=== PATIENT | female | born 1960 | race Caucasian/White ===

== ENCOUNTER 2023-02-26 08:54 | Day surgery (SDC) | payer OTHER, SELFPAY ==
--- NOTE | 2023-02-26 | PATH_ITS ---
[facility] Accession Number: [id number] No. of containers..01 Tissue . 01 Material submitted: . cecum - CECUM POLYP . 01 Diagnosis: Cecal Polyp: Vegetable material. No colonic tissue identified. Additional step sections examined. [facility] 03/02/2023 1608 Local . 01 Electronically signed: . Preet Corrigan MD, PhD, Pathologist NPI- [id number] . 01 Gross description: . CECUM POLYP: Received in formalin is 2 fragment(s) of restrepo, soft tissue measuring 0.1 x 0.1 x 0.1 cm to 0.1 x 0.1 x 0.1 cm submitted entirely in 1 cassette(s) /AAY 02/28/2023 0126 Local . 01 Pathologist provided ICD-10: K63.5 . 01 CPT . 533592 Specimen Comment: A courtesy copy of this report has been sent to [phone] Performed at: 01 [facility] [address] [place] [address] [address], [place], [place] [id number] MD Xu Rdz MD Phone: [phone]
[2023-02-26 09:15] VITALS: BMI 44.1
[2023-02-26 09:20] VITALS: BP 179/91; PULSE 80; RESP 16; TEMP 36.6; O2SAT 97
[2023-02-26 09:28] VITALS: BMI 44.1
[2023-02-26] MEDS: LACTATED RINGERS 1,000 ML 42 ML IV (09:30)
--- NOTE | 2023-02-26 09:51 | PM.HP.1 ---
History of Present Illness History of Present Illness Date Patient Seen: 02/26/23 Time Patient Seen: 09:52 Chief complaint: Screening Colonoscopy Narrative: Her last colonoscopy was some 10 years ago. Reports a family history of colon cancer in her mom. [facility] Medical History Diabetes 1.5, managed as type 2 Social History household members: spouse Smoking Status: Former smoker alcohol intake: current Meds Home Medications and Allergies Home Medications Medication Instructions Recorded Confirmed Type meloxicam 15 mg disintegrating 15 mg PO PRN PRN Pain (Scale Score 02/26/23 02/26/23 History tablet 1-3) Allergies Allergy/AdvReac Type Severity Reaction Status Date / Time No Known Drug Allergies Allergy Verified 02/26/23 09:12 Review of Systems Review of Systems ROS: Yes All systems reviewed with the patient and are negative except as otherwise documented Exam Vital Signs (past 8 hours): - 02/26/23 09:20 Temperature 97.9 F Pulse Rate 80 Respiratory Rate 16 Blood Pressure 179/91 H Pulse Oximetry 97 Oxygen Delivery Method Room Air Oxygen Delivery Method Room Air Const General: cooperative HENMT Head: normal to inspection Eyes General: appearance normal, both eyes and all related structures Neck Neck: normal visual inspection Chest Chest: normal inspection of the chest Resp Effort & Inspection: normal respiratory effort Cardio Rate: regular rate GI Inspection: normal to inspection Skin General: no rashes or lesions noted Neuro General: patient alert and patient awake Extrem General: normal to inspection and no pedal edema Psych Appearance: grossly normal Assessment & Plan Assessment & Plan narrative: 62-year-old female with a family history of colon cancer. Colonoscopy is pursued today.
--- NOTE | 2023-02-26 09:54 | PM.PREOP ---
Pre-operative Note Interval Note History & Physical reviewed/Exam performed by Physician: Yes Changes to H&P: No ASA Class (for procedural sedation): III
--- NOTE | 2023-02-26 11:00 | P.OP.COLON_ITS ---
Operative Date/Time/Diagnoses Date of procedure: 02/26/23 Time of procedure: 11:00 Pre-op diagnosis: Family history of colon cancer Post-op diagnosis: same Procedure & Clinicians Study performed: Colonoscopy with cold snare polypectomy Same procedure as scheduled: Yes Indications: Family history of colon cancer Surgeon: Donavan De Los Santos Procedure Notes SCOAP/Timeout: Done Procedure in detail: After the risks and benefits were explained, written and verbal informed consent was obtained. The patient was brought into the procedure room and placed into the left lateral decubitus position. Please see anesthesia notes for sedation details. Digital rectal examination was accomplished. The scope was introduced into the patient and advanced under direct visualization to the cecum as identified by the appendiceal orifice and ileocecal valve. The scope was slowly withdrawn to carefully examine the mucosa for any defects or lesions. Comprehensive imaging was accomplished throughout the rectum including the dentate line. The colon was decompressed, the scope was then removed from the patient who tolerated the procedure well. Adult colonoscope Bowel prep fair; there were a number of areas with [place] 1 stool balls but with irrigation we were able to see around this and the exam was acceptable. Scope withdrawal time: 8 minutes Sedation minutes: 14 Complications: none Impression: The patient had diverticulosis extending from the sigmoid all the way to the cecum. Prep conditions are as above. In the cecum on the lip of a diverticulum was a diminutive polyp removed with cold snare. No additional significant mucosal pathology was appreciated throughout. Endoscopic diagnosis 1. Diverticulosis 2. Diminutive polyp Post-procedure Plan for aftercare: 1. Await histopathology 2. Repeat colonoscopy 5 years considering family history. Disposition: PACU
[2023-02-26 11:03] VITALS: BP 118/69; PULSE 72; RESP 16; TEMP 36.4; O2SAT 93
[2023-02-26 11:13] VITALS: BP 129/84; PULSE 72; RESP 18; O2SAT 98
[2023-02-26 11:14] VITALS: BP 165/95; PULSE 73; RESP 14; TEMP 36.4; O2SAT 98
== END 2023-02-26 11:38 | disposition home or self-care (01) ==
PROVIDERS: Referring Provider Internal Medicine Gastroenterology; Visit Provider Internal Medicine Gastroenterology
PROC: 0DJD8ZZ Inspection of Lower Intestinal Tract, Via Natural or Artificial Opening Endoscopic (ICD-10-PCS; CPT 45378; principal; 2023-02-26 10:00)
DX: Z12.11 Encounter for screening for malignant neoplasm of colon (principal); Z80.0 Family history of malignant neoplasm of digestive organs; K57.30 Diverticulosis of large intestine without perforation or abscess without bleeding; E13.9 Other specified diabetes mellitus without complications; K63.5 Polyp of colon
CPT/HCPCS: 45385; J2704